=== PATIENT | female | born 1975 | race Caucasian/White ===

== ENCOUNTER 2018-06-30 09:10 | Emergency (ER) | payer OTHER ==
[2018-06-30 09:22] VITALS: BMI 39.0
--- NOTE | 2018-06-30 10:26 | PDOC ---
History of Present Illness - General Chief Complaint: Pain, Acute Stated Complaint: VOMITING Time Seen by Provider: 06/30/18 09:57 Past History - Travel Traveled outside of the country in the last 30 days: No Close contact w/someone who was outside of country & ill: No - Past Medical History Allergies/Adverse Reactions: Allergies Allergy/AdvReac Type Severity Reaction Status Date / Time No Known Allergies Allergy Verified 06/30/18 09:17 Home Medications: Ambulatory Orders Methylphenidate HCl [Concerta] 36 mg PO 06/30/17 Sertraline HCl [Zoloft] 100 mg PO BID 06/30/17 Topiramate [Topamax] 100 mg PO BID 06/30/17 Hydrocortisone 1% Cream [Hytone 1% Cream -] 1 applic TP BID #1 tube 07/03/17 Tolnaftate 1% Cream [Tinactin 1% Cream -] 1 applic TP BID #1 cream..g. 07/03/17 metroNIDAZOLE 0.75% VAG. GEL [Metrogel 0.75% Vaginal Gel -] 1 applic VG HS #7 tube 07/03/17 Cephalexin Monohydrate [Keflex -] 500 mg PO BID #14 capsule 06/30/18 Anemia: No Asthma: No Cancer: No Cardiac Disorders: No CVA: No COPD: No CHF: No Dementia: No Diabetes: No GI Disorders: No Disorders: No HTN: No Hypercholesterolemia: No Liver Disease: No Psychiatric Problems: Yes (BIPOLAR, DEPRESSION) Seizures: No Thyroid Disease: No - Surgical History Abdominal Surgery: No Appendectomy: No Cardiac Surgery: No Cholecystectomy: No Lung Surgery: No Neurologic Surgery: No Orthopedic Surgery: No - Immunization History Immunization Up to Date: Yes - Suicide/Smoking/Psychosocial Hx Smoking History: Former smoker Have you smoked in the past 12 months: No Number of Cigarettes Smoked Daily: 7 Information on smoking cessation initiated: No 'Breaking Loose' booklet given: 06/30/17 Hx Alcohol Use: No Drug/Substance Use Hx: No Substance Use Type: Alcohol, Cocaine, Marijuana Hx Substance Use Treatment: Yes (last detox at [facility] 5 years) Review of Systems - Review of Systems Able to Perform ROS?: Yes Comments:: 06/30/18 17:12 CONSTITUTIONAL: Absent: fever, chills, diaphoresis, generalized weakness, malaise, loss of appetite HEENT: Absent: rhinorrhea, nasal congestion, throat pain, throat swelling, difficulty swallowing, mouth swelling, ear pain, eye pain, visual Changes CARDIOVASCULAR: Absent: chest pain, loss of consciousness, palpitations, irregular heart rate, peripheral edema RESPIRATORY: Absent: cough, shortness of breath, dyspnea with exertion, orthopnea, wheezing, stridor, hemoptysis GASTROINTESTINAL: Present: abdominal pain, vomiting Absent: abdominal distension, nausea, diarrhea , constipation, melena, hematochezia GENITOURINARY: Absent: dysuria, frequency, urgency, hesitancy, hematuria, flank pain, genital pain MUSCULOSKELETAL: Absent: myalgia, arthralgia, joint swelling SKIN: Absent: rash, itching, pallor HEMATOLOGIC/IMMUNOLOGIC: Absent: easy bleeding, easy bruising, lymphadenopathy, frequent infections ENDOCRINE: Absent: unexplained weight gain, unexplained weight loss, heat intolerance, cold intolerance NEUROLOGIC: Absent: headache, focal weakness or paresthesias, dizziness, unsteady gait, seizure, mental status changes, bladder or bowel incontinence PSYCHIATRIC: Absent: anxiety, depression, suicidal or homicidal ideation, hallucinations. Is the patient limited Polish proficient: No *Physical Exam - Vital Signs Last Vital Signs Temp Pulse Resp BP Pulse Ox 98.1 F 66 18 95/56 L 95 06/30/18 09:18 06/30/18 09:18 06/30/18 09:18 06/30/18 09:18 06/30/18 09:18 - Physical Exam Comments: 06/30/18 17:13 GENERAL: Well developed, well nourished. Awake and alert. No acute distress. HEENT: Normocephalic, atraumatic. PERRLA, EOMI. No conjunctival pallor. Sclera are non- icteric. Moist mucous membranes. Oropharynx is clear. NECK: Supple. Full ROM. No JVD. Carotid pulses 2+ and symmetric, without bruits. No thyromegaly. No lymphadenopathy. CARDIOVASCULAR: Regular rate and rhythm. No murmurs, rubs, or gallops. Distal pulses are 2+ and symmetric. PULMONARY: No evidence of respiratory distress. Lungs clear to auscultation bilaterally. No wheezing, rales or rhonchi. ABDOMINAL: Soft. Non-tender. Non-distended. No rebound or guarding. No organomegaly. Normoactive bowel sounds. RECTAL: Good rectal tone. No external or internal hemorrhoids appreciated. MUSCULOSKELETAL Normal range of motion at all joints. No bony deformities or tenderness. No CVA tenderness. EXTREMITIES: No cyanosis. No clubbing. No edema. No calf tenderness. SKIN: Warm and dry. Normal capillary refill. No rashes. No jaundice. NEUROLOGICAL: Alert, awake, appropriate. Cranial nerves 2-12 intact. No deficits to light touch and temperature in face, upper extremities and lower extremities. No motor deficits in the in face, upper extremities and lower extremities. Normoreflexic in the upper and lower extremities. Normal speech. Toes are down- going bilaterally. Gait is normal without ataxia. PSYCHIATRIC: Cooperative. Good eye contact. Appropriate mood and affect. ED Treatment Course - LABORATORY CBC & Chemistry Diagram: 06/30/18 10:52 06/30/18 10:52 *DC/Admit/Observation/Transfer Diagnosis at time of Disposition: Occult blood in stools UTI (urinary tract infection) Qualifiers: Urinary tract infection type: acute cystitis Hematuria presence: with hematuria Qualified Code(s): N30.01 - Acute cystitis with hematuria - Discharge Dispostion Disposition: HOME Condition at time of disposition: Stable Decision to Admit order: No - Referrals Referrals: Lorenzo Pitt MD [Staff Physician] - - Patient Instructions Printed Discharge Instructions: Fecal Occult Blood Test, DI for Urinary Tract Infection (UTI) Additional Instructions: You have a urinary tract infection. This caused by bacteria. Please drink plenty of fluids. Take your antibiotics as prescribed. Finish the entire dose even if you feel better. You may take Tylenol or Motrin as needed for pain. Follow the dosing instruction on the bottle You also had blood in your stool today Please follow up with Dr. Pitt (gastroenterology) for further evaluation Please follow up with your primary care doctor this week. Return to the emergency department if you have fevers, chills, nausea, vomiting , back pain, or have any changes in your symptoms. - Post Discharge Activity Forms/Work/School Notes: Back to Work
[2018-06-30 11:24] LABS: BASO % 1.3 % (0-2.0); EOS % 4.9 % (0-4.5); HEMATOCRIT 38.5 % (32.4-45.2); HEMOGLOBIN 12.9 GM/dL (10.7-15.3); LYMPH % 19.2 % (8-40); MCH 29.3 pg (25.7-33.7); MCHC 33.5 g/dl (32.0-36.0); MEAN CELL VOLUME 87.3 fl (80-96); MEAN PLT VOLUME 8.9 fl (7.5-11.1); MONO % 5.4 % (3.8-10.2); NEUT % 69.2 % (42.8-82.8); PLATELET COUNT 285 K/MM3 (134-434); RBC 4.41 M/mm3 (3.60-5.2); RDW 14.3 % (11.6-15.6); WHITE BLOOD COUNT 8.7 K/mm3 (4.0-10.0)
[2018-06-30 11:34] LABS: INR 1.03 (0.83-1.09); PROTHROMBIN TIME (PATIENT) 12.2 SEC (9.7-13.0)
[2018-06-30 11:39] LABS: ALBUMIN 3.5 g/dl (3.4-5.0); ALK PHOS 104 U/L (45-117); ANION GAP 5 MMOL/L (8-16); BILIRUBIN,TOTAL 0.2 mg/dL (0.2-1); BLOOD UREA NITROGEN 7 mg/dL (7-18); CHLORIDE 110 mmol/L (98-107); CO2 25 mmol/L (21-32); CREATININE 0.8 mg/dL (0.55-1.3); GLUCOSE,RANDOM 111 mg/dL (74-106); SGOT/AST 47 U/L (15-37); SGPT/ALT 112 U/L (13-61); SODIUM 140 mmol/L (136-145); TOT PROT 7.1 g/dl (6.4-8.2)
[2018-06-30 12:30] LABS: LIPASE 72 U/L (73-393)
[2018-06-30 13:04] LABS: HCG,QUALITATIVE URINE Negative
[2018-06-30 13:05] LABS: EPI CELLS 2.4 /HPF (0-5/HPF); PH,URINE 6.5 (5.0-8.0); URINE APPEARANCE CLOUDY; URINE BACTERIA 1215.5 /hpf (NEGATIVE); URINE BILIRUBIN NEGATIVE (NEGATIVE); URINE CASTS 3 /lpf (0-8); URINE COLOR YELLOW; URINE GLUCOSE (UA) NEGATIVE (NEGATIVE); URINE KETONE NEGATIVE (NEGATIVE); URINE LEUK ESTERASE 2+ (NEGATIVE); URINE NITRITE POSITIVE (NEGATIVE); URINE PROTEIN NEGATIVE (NEGATIVE); URINE UROBILINOGEN 0.2 mg/dL (0.2-1.0); URINE WBC 45 /hpf (0-5)
[2018-06-30 13:59] LABS: URINE RBC 7.7 /hpf (0-4)
[2018-06-30] MEDS ORDERED: CEFTRIAXONE 1,000 MG in DEXTROSE 5%-WATER - 50 ML IVPB ONE (16:15)
[2018-06-30] MEDS ORDERED: CEFTRIAXONE 1 GM/50 ML BAG ONE (16:33)
[2018-06-30 18:01] VITALS: BP 115/72; PULSE 70; TEMP 97.9
== END 2018-06-30 18:13 | disposition home or self-care (01) ==
LOC: JER 09:10
DX: N30.01 Acute cystitis with hematuria (principal); R19.5 Other fecal abnormalities
CPT/HCPCS: 36415; 74177-TC; 76705-TC; 80053; 81003; 82272; 83690; 84703; 85025; 85610; 87086; 87186; 96365; 99283-25

== ENCOUNTER 2018-08-21 11:06 | Emergency (ER) | payer OTHER | END 2018-08-21 14:09 | disposition home or self-care (01) | LOC: JER 11:06 ==

== ENCOUNTER 2019-01-07 07:35 | Emergency (ER) | payer OTHER ==
[2019-01-07 07:46] VITALS: BP 121/74; PULSE 77; TEMP 98.4; BMI 37.7
[2019-01-07] MEDS ORDERED: SODIUM CHLORIDE 1,000 ML IV STA (08:04)
[2019-01-07] MEDS ORDERED: ONDANSETRON 4 MG/2 ML VIAL IVPUSH ONE (08:04)
[2019-01-07] MEDS ORDERED: PANTOPRAZOLE SODIUM 40 MG in SODIUM CHLORIDE 100 ML IVPB ONE (08:06)
[2019-01-07] MEDS ORDERED: ONDANSETRON 4 MG/2 ML VIAL ONE (08:16)
[2019-01-07] MEDS ORDERED: PANTOPRAZOLE SODIUM 0 MG/0 ML BAG IVPB ONE (08:16)
[2019-01-07] MEDS ORDERED: PANTOPRAZOLE SODIUM 40 MG/100 ML BAG IVPB ONE (08:19)
[2019-01-07 08:43] LABS: BASO % 2.8 % (0-2.0); EOS % 3.6 % (0-4.5); HEMATOCRIT 42.1 % (32.4-45.2); HEMOGLOBIN 13.7 GM/dL (10.7-15.3); LYMPH % 24.2 % (8-40); MCHC 32.6 g/dl (32.0-36.0); MEAN PLT VOLUME 9.6 fl (7.5-11.1); MONO % 5.9 % (3.8-10.2); NEUT % 63.5 % (42.8-82.8); PLATELET COUNT 265 K/MM3 (134-434); RDW 13.5 % (11.6-15.6); WHITE BLOOD COUNT 9.1 K/mm3 (4.0-10.0)
[2019-01-07 09:16] LABS: ALBUMIN 3.9 g/dl (3.4-5.0); BILIRUBIN,TOTAL 0.3 mg/dL (0.2-1); BLOOD UREA NITROGEN 9.6 mg/dL (7-18); CALCIUM 9.3 mg/dL (8.5-10.1); CREATININE 0.8 mg/dL (0.55-1.3); POTASSIUM 4.1 mmol/L (3.5-5.1); TOT PROT 7.5 g/dl (6.4-8.2)
--- NOTE | 2019-01-07 09:39 | PDOC ---
History of Present Illness - General Chief Complaint: Nausea/Vomiting Stated Complaint: NAUSEA AND VOMITING Time Seen by Provider: 01/07/19 08:03 History Source: Patient, Unavil. due to pt. cond. - History of Present Illness Travel History: No Initial Comments: 01/07/19 08:34 43-year-old female presents to ED with complaints of intermittent nausea for the past few weeks worsened in severity over the past few days especially at night. Patient states history of GERD and had an endoscopy and so was prescribed Protonix which she has not taken in the past few days. Patient denies fever, chills, chest pain, shortness of breath, urinary complaints or diarrhea. Patient states is continue to take her medications and denies any alcohol or drug use recently. She states does not follow the recommended diet and frequently eats fast foods or whatever is available at the time patient states is also diabetic but denies severely elevated glucose reading recently ranging anywhere from 120- 200 Timing/Duration: reports: getting worse Quality: reports: mild, moderate, burning Abdominal Pain Onset Location: reports: epigastric Pain Radiation: reports: no radiation Activities at Onset: reports: none Aggravating Factors: improves with: None Alleviating Factors: improves with: None Past History - Travel Traveled outside of the country in the last 30 days: No Close contact w/someone who was outside of country & ill: No - Past Medical History Allergies/Adverse Reactions: Allergies Allergy/AdvReac Type Severity Reaction Status Date / Time No Known Allergies Allergy Verified 01/07/19 07:40 Home Medications: Ambulatory Orders Methylphenidate HCl [Concerta] 36 mg PO 06/30/17 Sertraline HCl [Zoloft] 100 mg PO BID 06/30/17 Topiramate [Topamax] 100 mg PO BID 06/30/17 Hydrocortisone 1% Cream [Hytone 1% Cream -] 1 applic TP BID #1 tube 07/03/17 Tolnaftate 1% Cream [Tinactin 1% Cream -] 1 applic TP BID #1 cream..g. 07/03/17 metroNIDAZOLE 0.75% VAG. GEL [Metrogel 0.75% Vaginal Gel -] 1 applic VG HS #7 tube 07/03/17 Cephalexin Monohydrate [Keflex -] 500 mg PO BID #14 capsule 06/30/18 Cephalexin [Keflex] 500 mg PO BID #14 capsule 08/21/18 Ondansetron HCl [Zofran] 4 mg PO TID PRN #12 tablet 08/21/18 Ondansetron HCl [Zofran] 4 mg PO TID PRN #12 tablet 01/07/19 Anemia: No Asthma: No Cancer: No Cardiac Disorders: No CVA: No COPD: No CHF: No Dementia: No Diabetes: No GI Disorders: Yes (GERD) Disorders: No HTN: No Hypercholesterolemia: No Liver Disease: No Psychiatric Problems: Yes (BIPOLAR, DEPRESSION) Seizures: No Thyroid Disease: No - Surgical History Abdominal Surgery: No Appendectomy: No Cardiac Surgery: No Cholecystectomy: No Lung Surgery: No Neurologic Surgery: No Orthopedic Surgery: No - Immunization History Immunization Up to Date: Yes - Psycho Social/Smoking Cessation Hx Smoking History: Never smoked Have you smoked in the past 12 months: No Number of Cigarettes Smoked Daily: 7 Information on smoking cessation initiated: No 'Breaking Loose' booklet given: 06/30/17 Hx Alcohol Use: No Drug/Substance Use Hx: No Substance Use Type: Alcohol, Cocaine, Marijuana Hx Substance Use Treatment: Yes (last detox at [facility] 5 years) Patient Lives Alone: No Lives with/in: Housing Abd/GI Specific PMHX - Complaint Specific PMHX GERD: Yes Review of Systems - Review of Systems Able to Perform ROS?: Yes Constitutional: No: Symptoms Reported HEENTM: No: Symptoms Reported Respiratory: No: Symptoms reported Cardiac (ROS): No: Symptoms Reported ABD/GI: Yes: Nausea, Vomiting (Intermittent), Indigestion. No: Constipated, Diarrhea, Poor Appetite, Poor Fluid Intake : No: Symptoms Reported Musculoskeletal: No: Symptoms Reported Integumentary: No: Symptoms Reported Neurological: No: Symptoms reported Endocrine: No: Symptoms Reported Hematologic/Lymphatic: No: Symptoms Reported *Physical Exam - Vital Signs Last Vital Signs Temp Pulse Resp BP Pulse Ox 98.4 F 77 16 121/74 100 01/07/19 07:40 01/07/19 07:40 01/07/19 07:40 01/07/19 07:40 01/07/19 07:40 - Physical Exam General Appearance: Yes: Nourished, Appropriately Dressed. No: Apparent Distress HEENT: positive: EOMI, JASPREET, TMs Normal, Pharynx Normal (dry) Neck: positive: Supple Respiratory/Chest: positive: Lungs Clear, Normal Breath Sounds. negative: Respiratory Distress, Accessory Muscle Use Cardiovascular: positive: Regular Rhythm, Regular Rate. negative: Murmur Gastrointestinal/Abdominal: positive: Normal Bowel Sounds, Soft, Tenderness ( Mild epigastric). negative: Distended, Guarding, Mass Musculoskeletal: negative: CVA Tenderness Extremity: positive: Normal Inspection Integumentary: positive: Normal Color, Warm, Moist Neurologic: positive: Normal Mood/Affect (Flat affect at times), Motor Strength 5/5 (Ambulatory) ED Treatment Course - LABORATORY CBC & Chemistry Diagram: 01/07/19 08:33 01/07/19 08:33 - ADDITIONAL ORDERS Additional order review: Laboratory Results 01/07/19 08:33 Sodium 139 Potassium 4.1 Chloride 107 Carbon Dioxide 23 Anion Gap 9 BUN 9.6 Creatinine 0.8 Est GFR (CKD-EPI)AfAm 106.13 Est GFR (CKD-EPI)NonAf 91.57 Random Glucose 231 H Calcium 9.3 Total Bilirubin 0.3 AST 51 H ALT 74 H Alkaline Phosphatase 117 Total Protein 7.5 Albumin 3.9 01/07/19 08:33 RBC 4.90 MCV 86.0 MCHC 32.6 RDW 13.5 MPV 9.6 Neutrophils % 63.5 Lymphocytes % 24.2 D Monocytes % 5.9 Eosinophils % 3.6 Basophils % 2.8 H - Medications Given in the ED: ED Medications Discontinued Medications Generic Name Dose Route Start Last Admin Trade Name Freq PRN Reason Stop Dose Admin Sodium Chloride 1,000 mls @ 1,000 mls/hr 01/07/19 08:04 01/07/19 08:38 Normal Saline - IV 01/07/19 09:03 1,000 mls/hr ASDIR STA Administration Pantoprazole Sodium 40 mg/ 100 mls @ 200 mls/hr 01/07/19 08:06 01/07/19 08:38 Sodium Chloride IVPB 01/07/19 08:35 200 mls/hr ONCE ONE Administration Ondansetron HCl 4 mg 01/07/19 08:04 01/07/19 08:38 Zofran Injection IVPUSH 01/07/19 08:05 4 mg ONCE ONE Administration Medical Decision Making - Medical Decision Making 01/07/19 09:08 Chief complaint: Nausea over the past few months worsening in severity over the past few weeks patient recent diagnosis of GERD and has not been taking her Protonix as prescribed due to nausea Exam patient with dry mouth vital signs stable mild epigastric tenderness Plan: Labs, urine, IV Protonix, Zofran and IV fluids 01/07/19 09:40 Laboratory Tests 01/07/19 01/07/19 08:33 08:33 WBC 9.1 Hgb 13.7 Hct 42.1 Neutrophils % 63.5 Basophils % 2.8 H Sodium 139 Potassium 4.1 Chloride 107 Carbon Dioxide 23 Anion Gap 9 BUN 9.6 Creatinine 0.8 Est GFR (CKD-EPI)AfAm 106.13 Est GFR (CKD-EPI)NonAf 91.57 Random Glucose 231 H Calcium 9.3 Total Bilirubin 0.3 AST 51 H ALT 74 H Alkaline Phosphatase 117 Total Protein 7.5 Albumin 3.9 Patient states is feeling much better and requesting to eat breakfast. Urine collected 01/07/19 11:24 Laboratory Tests 01/07/19 09:27 Urine Glucose (UA) 3+ H Urine Ketones Negative Urine Blood Negative Urine Nitrite Negative Ur Leukocyte Esterase 1+ H Urine WBC (Auto) 45 Urine Bacteria (Auto) 662.1 Patient given a dose of IV ceftriaxone based on previous positive urine culture showing Staph capitis and week virosa. Patient had sensitivity to ceftriaxone. Based on patient's clinical exam lab work and urine patient will be sent home with no antibiotics with recommendations to take Protonix given Zofran for nausea and will follow-up urine culture if positive. Patient also given clean hygiene instructions and to drink plenty of fluids 01/07/19 12:15 Laboratory Tests 01/07/19 01/07/19 08:33 08:33 Magnesium 2.2 Serum , Qual Negative Discharge - Discharge Information Problems reviewed: Yes Clinical Impression/Diagnosis: Nausea & vomiting Condition: Good Disposition: HOME - Additional Discharge Information Prescriptions: Ondansetron HCl [Zofran] 4 mg PO TID PRN #12 tablet PRN Reason: Nausea And/Or Vomiting - Follow up/Referral Referrals: Juani Peters FNP [Primary Care Provider] - - Patient Discharge Instructions Patient Printed Discharge Instructions: DI for Nausea -- Adult Additional Instructions: Drink plenty of fluids. Clean from front to back. Take Zofran as needed for nausea. Take Protonix as previously prescribed. We will call you if your urine culture shows a bacteria that needs to be treated with an antibiotic. Otherwise you have been given a dose in the ER which is adequate coverage for 24 hours. - Post Discharge Activity
[2019-01-07 09:49] LABS: EPI CELLS 0.9 /HPF (0-5/HPF); HYALINE CASTS 0 /lpf (0-8); PH,URINE 6.5 (5.0-8.0); URINE APPEARANCE CLEAR; URINE BACTERIA 662.1 /hpf (NEGATIVE); URINE BILIRUBIN NEGATIVE (NEGATIVE); URINE COLOR YELLOW; URINE GLUCOSE (UA) 3+ (NEGATIVE); URINE KETONE NEGATIVE (NEGATIVE); URINE LEUK ESTERASE 1+ (NEGATIVE); URINE NITRITE NEGATIVE (NEGATIVE); URINE PROTEIN TRACE (NEGATIVE); URINE UROBILINOGEN 0.2 mg/dL (0.2-1.0); URINE WBC 45 /hpf (0-5)
[2019-01-07] MEDS ORDERED: CEFTRIAXONE 1 GM in DEXTROSE 5%-WATER - 50 ML IVPB ONE (10:12)
[2019-01-07] MEDS ORDERED: CEFTRIAXONE 1 GM/50 ML BAG ONE (10:16)
[2019-01-07 10:18] LABS: URINE RBC 4 /hpf (0-4)
[2019-01-07 11:54] LABS: MAGNESIUM 2.2 mg/dL (1.8-2.4)
== END 2019-01-07 11:58 | disposition home or self-care (01) ==
LOC: JER 07:35
PROC: 3E033GC Introduction of Other Therapeutic Substance into Peripheral Vein, Percutaneous Approach (ICD-10-PCS; principal; 2019-01-07)
PROC: 3E03329 Introduction of Other Anti-infective into Peripheral Vein, Percutaneous Approach (ICD-10-PCS; 2019-01-07)
PROC: 3E033GC Introduction of Other Therapeutic Substance into Peripheral Vein, Percutaneous Approach (ICD-10-PCS; 2019-01-07)
DX: K21.9 Gastro-esophageal reflux disease without esophagitis (principal); F31.9 Bipolar disorder, unspecified
CPT/HCPCS: 36415; 80053; 81003; 83690; 83735; 84703; 85025; 87086; 87186; 99283-25; J7030

== ENCOUNTER 2019-03-02 08:40 | Emergency (ER) | payer OTHER ==
[2019-03-02 08:46] VITALS: TEMP 98.4; BMI 38.2
--- NOTE | 2019-03-02 08:58 | PDOC ---
History of Present Illness - General Chief Complaint: Nausea/Vomiting Stated Complaint: Nausea/Vomiting Time Seen by Provider: 03/02/19 08:57 History Source: Patient Exam Limitations: No Limitations - History of Present Illness Travel History: No Initial Comments: 03/02/19 11:04 43-year-old female presents to the emergency room with complaints of epigastric burning along with nausea and vomited after eating late last evening. Patient states symptoms have been intermittent for the past few days and denies any fever, chills or diarrhea. Patient has complaints of urinary frequency with intermittent incontinence. Patient states was treated for UTI a few months ago and is followed by Dr. Pitt for GI. Timing/Duration: reports: intermittent Quality: reports: mild, burning Abdominal Pain Onset Location: reports: epigastric Pain Radiation: reports: no radiation Aggravating Factors: improves with: Eating Alleviating Factors: improves with: None Past History - Travel Traveled outside of the country in the last 30 days: No Close contact w/someone who was outside of country & ill: No - Past Medical History Allergies/Adverse Reactions: Allergies Allergy/AdvReac Type Severity Reaction Status Date / Time No Known Allergies Allergy Verified 03/02/19 08:42 Home Medications: Ambulatory Orders Methylphenidate HCl [Concerta] 36 mg PO DAILY 06/30/17 Topiramate [Topamax] 100 mg PO BID 06/30/17 Nitrofurantoin Monohyd/M-Cryst [Macrobid -] 100 mg PO BID #14 capsule 03/02/19 Ondansetron HCl [Zofran] 4 mg PO TID PRN #12 tablet 03/02/19 Anemia: No Asthma: No Cancer: No Cardiac Disorders: No CVA: No COPD: No CHF: No Dementia: No Diabetes: No GI Disorders: Yes (GERD) Disorders: No HTN: No Hypercholesterolemia: No Liver Disease: No Psychiatric Problems: Yes (BIPOLAR, DEPRESSION) Seizures: No Thyroid Disease: No - Surgical History Abdominal Surgery: No Appendectomy: No Cardiac Surgery: No Cholecystectomy: No Lung Surgery: No Neurologic Surgery: No Orthopedic Surgery: No - Immunization History Immunization Up to Date: Yes - Psycho Social/Smoking Cessation Hx Smoking History: Never smoked Have you smoked in the past 12 months: No Number of Cigarettes Smoked Daily: 7 'Breaking Loose' booklet given: 06/30/17 Hx Alcohol Use: No Drug/Substance Use Hx: No Substance Use Type: Alcohol, Cocaine, Marijuana Hx Substance Use Treatment: Yes (last detox at [facility] 5 years) Patient Lives Alone: No Lives with/in: assisted living Abd/GI Specific PMHX - Complaint Specific PMHX GERD: Yes Review of Systems - Review of Systems Able to Perform ROS?: Yes Constitutional: No: Symptoms Reported HEENTM: No: Symptoms Reported Respiratory: No: Symptoms reported ABD/GI: Yes: Nausea, Vomiting, Abdominal cramping. No: Constipated, Diarrhea : Yes: Frequency, Incontinence Musculoskeletal: No: Symptoms Reported Integumentary: No: Symptoms Reported Neurological: No: Symptoms reported Endocrine: No: Symptoms Reported Hematologic/Lymphatic: No: Symptoms Reported *Physical Exam - Vital Signs Last Vital Signs Temp Pulse Resp BP Pulse Ox 98.4 F 79 18 110/71 99 03/02/19 08:42 03/02/19 08:42 03/02/19 08:42 03/02/19 08:42 03/02/19 08:42 - Physical Exam General Appearance: Yes: Nourished, Appropriately Dressed. No: Apparent Distress HEENT: positive: Pharynx Normal. negative: Pale Conjunctivae Neck: positive: Supple Respiratory/Chest: positive: Lungs Clear, Normal Breath Sounds. negative: Respiratory Distress, Accessory Muscle Use Cardiovascular: positive: Regular Rhythm, Regular Rate. negative: Murmur Gastrointestinal/Abdominal: positive: Soft, Tenderness (epigastric) Musculoskeletal: negative: CVA Tenderness Integumentary: positive: Normal Color, Warm, Moist Neurologic: positive: Motor Strength 5/5 (ambulatory) ED Treatment Course - LABORATORY CBC & Chemistry Diagram: 03/02/19 09:20 03/02/19 09:20 Medical Decision Making - Medical Decision Making 03/02/19 10:19 Chief complaint: Nausea intermittently now with one episode of vomiting late last night. Patient also with urinary symptoms. Patient with history of GERD and recent UTI Exam: Patient normal vital signs epigastric tenderness no active vomiting here in the ER Plan: Labs, IV fluids, Zofran IV Protonix and urine urine culture 03/02/19 11:20 Laboratory Tests 03/02/19 03/02/19 03/02/19 09:20 09:20 09:20 WBC 10.1 H Hgb 13.6 Hct 41.3 Absolute Neuts (auto) 6.7 Sodium 139 Potassium 4.1 Chloride 105 Carbon Dioxide 24 Anion Gap 9 BUN 12.4 Creatinine 0.9 Random Glucose 130 H AST 24 ALT 58 Lipase 96 Ur Leukocyte Esterase Urine WBC (Auto) Urine HCG, Qual 03/02/19 03/02/19 10:40 10:40 WBC Hgb Hct Absolute Neuts (auto) Sodium Potassium Chloride Carbon Dioxide Anion Gap BUN Creatinine Random Glucose AST ALT Lipase Ur Leukocyte Esterase 1+ H Urine WBC (Auto) 28 Urine HCG, Qual Negative Patient states feeling much better tolerated ice chips /water . Will discharge home with Zofran recommend to continue Protonix and other medications along with antibiotics. Previous urine culture reviewed and resulted staph capitis with a subspecies. Sensitive to Levaquin, Cipro and Macrobid. Will treat with Macrobid. 03/02/19 11:21 Discharge - Discharge Information Problems reviewed: Yes Clinical Impression/Diagnosis: UTI (urinary tract infection), Nausea & vomiting Condition: Improved Disposition: HOME - Additional Discharge Information Prescriptions: Nitrofurantoin Monohyd/M-Cryst [Macrobid -] 100 mg PO BID #14 capsule Ondansetron HCl [Zofran] 4 mg PO TID PRN #12 tablet PRN Reason: Nausea And/Or Vomiting - Follow up/Referral Referrals: Agnes Hernandez MD [Staff Physician] - - Patient Discharge Instructions Patient Printed Discharge Instructions: DI for Urinary Tract Infection (UTI), DI for Nausea -- Adult, GERD Diet Additional Instructions: Please drink plenty of fluids. Clean from front to back. Take antibiotics until completed. May take Zofran as needed for nausea. Continue all previous medications as prescribed. Follow-up with your doctors. - Post Discharge Activity
[2019-03-02] MEDS ORDERED: SODIUM CHLORIDE 1,000 ML IV STA (09:01)
[2019-03-02] MEDS ORDERED: ONDANSETRON 4 MG/2 ML VIAL IVPUSH ONE (09:01)
[2019-03-02] MEDS ORDERED: PANTOPRAZOLE SODIUM 40 MG VIAL IVPUSH ONE (09:02)
[2019-03-02] MEDS ORDERED: PANTOPRAZOLE SODIUM 40 MG/100 ML BAG IVPB ONE (09:24)
[2019-03-02] MEDS ORDERED: ONDANSETRON 4 MG/2 ML VIAL ONE (09:25)
[2019-03-02 09:38] LABS: BASO % 1.3 % (0-2.0); EOS % 2.7 % (0-4.5); HEMATOCRIT 41.3 % (32.4-45.2); HEMOGLOBIN 13.6 GM/dL (10.7-15.3); LYMPH % 23.3 % (8-40); MCHC 32.9 g/dl (32.0-36.0); MEAN CELL VOLUME 85.3 fl (80-96); MEAN PLT VOLUME 9.3 fl (7.5-11.1); MONO % 6.1 % (3.8-10.2); NEUT % 66.6 % (42.8-82.8); PLATELET COUNT 312 K/MM3 (134-434); RBC 4.85 M/mm3 (3.60-5.2); RDW 14.2 % (11.6-15.6); WHITE BLOOD COUNT 10.1 K/mm3 (4.0-10.0)
[2019-03-02 10:05] LABS: MAGNESIUM 2.1 mg/dL (1.8-2.4)
[2019-03-02 10:13] LABS: BILIRUBIN,TOTAL 0.3 mg/dL (0.2-1); BLOOD UREA NITROGEN 12.4 mg/dL (7-18); CALCIUM 9.9 mg/dL (8.5-10.1); CREATININE 0.9 mg/dL (0.55-1.3); POTASSIUM 4.1 mmol/L (3.5-5.1); TOT PROT 7.9 g/dl (6.4-8.2)
[2019-03-02 11:05] LABS: HYALINE CASTS 0 /lpf (0-8); PH,URINE 6.5 (5.0-8.0); URINE APPEARANCE CLEAR; URINE BILIRUBIN NEGATIVE (NEGATIVE); URINE COLOR YELLOW; URINE GLUCOSE (UA) NEGATIVE (NEGATIVE); URINE KETONE NEGATIVE (NEGATIVE); URINE LEUK ESTERASE 1+ (NEGATIVE); URINE NITRITE NEGATIVE (NEGATIVE); URINE PROTEIN NEGATIVE (NEGATIVE); URINE RBC 1 /hpf (0-4); URINE UROBILINOGEN 0.2 mg/dL (0.2-1.0); URINE WBC 28 /hpf (0-5)
[2019-03-02 11:34] VITALS: BP 114/72; PULSE 76
== END 2019-03-02 11:34 | disposition home or self-care (01) ==
LOC: JER 08:40
PROC: 3E033GC Introduction of Other Therapeutic Substance into Peripheral Vein, Percutaneous Approach (ICD-10-PCS; principal; 2019-03-02)
DX: N39.0 Urinary tract infection, site not specified (principal); K21.9 Gastro-esophageal reflux disease without esophagitis; F31.89 Other bipolar disorder
CPT/HCPCS: 36415; 80053; 81003; 83690; 83735; 84703; 85025; 87086; 99284-25; J7030

== ENCOUNTER 2023-12-24 00:27 | Emergency (ER) | payer OTHER ==
[2023-12-24 00:51] VITALS: BP 109/92; PULSE 104; RESP 18; TEMP 98.4; BMI 32.3
[2023-12-24] MEDS ORDERED: ONDANSETRON 4 MG/2 ML VIAL ONE (01:13)
[2023-12-24] MEDS ORDERED: FAMOTIDINE 20 MG/50 ML IVPB 20 MG/50 ML MG IVPB ONE (01:14)
[2023-12-24] MEDS: LACTATED RINGERS SOLUTION 1000 ML INFUS.BAG IV ONE (01:37)
[2023-12-24] MEDS: ONDANSETRON 4 MG/2 ML VIAL IVPUSH ONE (01:37)
[2023-12-24] MEDS: FAMOTIDINE 20 MG/50 ML IVPB 20 MG/50 ML MG IVPB ONE (01:37)
[2023-12-24 01:39] LABS: BASO % 0.9 % (0-2.0); EOS % 1.1 % (0-4.5); HEMATOCRIT 35.6 % (32.4-45.2); HEMOGLOBIN 11.8 GM/dL (10.7-15.3); LYMPH % 12.7 % (8-40); MCH 26.7 pg (25.7-33.7); MCHC 33.1 g/dl (32.0-36.0); MEAN CELL VOLUME 80.6 fl (80-96); MEAN PLT VOLUME 8.5 fl (7.5-11.1); MONO % 4.4 % (3.8-10.2); NEUT % 80.9 % (42.8-82.8); PLATELET COUNT 327 10^3/uL (134-434); RBC 4.42 M/mm3 (3.60-5.2); RDW 14.6 % (11.6-15.6); WHITE BLOOD COUNT 10.7 K/mm3 (4.0-10.0)
[2023-12-24 02:09] LABS: POTASSIUM 4.1 mmol/L (3.5-5.1)
[2023-12-24 02:11] LABS: ALBUMIN 3.5 g/dl (3.4-5.0); CALCIUM 9.3 mg/dL (8.5-10.1)
[2023-12-24 02:12] LABS: BLOOD UREA NITROGEN 10.4 mg/dL (7-18)
[2023-12-24 02:15] LABS: CREATININE 0.7 mg/dL (0.55-1.3)
[2023-12-24 02:16] LABS: BILIRUBIN,TOTAL 0.3 mg/dL (0.2-1); TOT PROT 7.2 g/dl (6.4-8.2)
[2023-12-24 03:07] LABS: HIV INTERPRETATION NEGATIVE (NEGATIVE)
[2023-12-24 04:44] LABS: EPI CELLS >36 /uL (0-25.1); HYALINE CASTS 1 /uL (0-3.1); URINE APPEARANCE CLOUDY; URINE BACTERIA 30 /uL (0-1359); URINE BILIRUBIN 1+ (NEGATIVE); URINE COLOR RED; URINE GLUCOSE (UA) NEGATIVE (NEGATIVE); URINE KETONE NEGATIVE (NEGATIVE); URINE LEUK ESTERASE 2+ (NEGATIVE); URINE NITRITE NEGATIVE (NEGATIVE); URINE PROTEIN 3+ (NEGATIVE); URINE UROBILINOGEN 0.2 mg/dL (0.2-1.0); URINE WBC 226 /uL (0-25.8)
[2023-12-24] MEDS ORDERED: CEPHALEXIN MONOHYDRATE 500 MG CAPSULE (UD) ONE (05:02)
[2023-12-24] MEDS ORDERED: ACETAMINOPHEN 325 MG TABLET (FP) ONE (05:02)
[2023-12-24] MEDS: ACETAMINOPHEN 500 MG TABLET (FP) PO ONE (05:12)
[2023-12-24] MEDS: CEPHALEXIN MONOHYDRATE 500 MG CAPSULE (UD) PO ONE (05:12)
[2023-12-24 07:36] LABS: URINE RBC 16704.5 /uL (0-23.9); YEAST NONE SEEN (NEGATIVE)
== END 2023-12-24 05:13 | disposition home or self-care (01) ==
LOC: JER 00:27
PROC: 3E033GC Introduction of Other Therapeutic Substance into Peripheral Vein, Percutaneous Approach (ICD-10-PCS; principal; 2023-12-24)
DX: N39.0 Urinary tract infection, site not specified (principal); R11.2 Nausea with vomiting, unspecified; R10.13 Epigastric pain; R35.0 Frequency of micturition; Z20.822 Contact with and (suspected) exposure to COVID-19
CPT/HCPCS: 0241U-QW; 36415; 80053; 81003; 84702; 85025; 86803; 87086; 87389; 93005; 93010; 99284-25